=== PATIENT | male | born 1950 | race Caucasian/White ===

== ENCOUNTER 2023-05-10 10:24 | Day surgery (SDC) | payer MEDICARE, BC ==
[2023-05-08 12:53] VITALS: BMI 34.5
[2023-05-10] MEDS: LACTATED RINGERS 1,000 ML IV SCH (10:50)
[2023-05-10 11:02] VITALS: RESP 16; TEMP 97.2
--- NOTE | 2023-05-10 11:45 | P.PCN ---
Date of Procedure: 05/10/23 Procedure(s) Performed: BRIEF HISTORY: Patient is a 73-year-old pleasant white male scheduled for an elective colonoscopy as a part of screening for colon cancer. PROCEDURE PERFORMED: Colonoscopy with snare polypectomy. PREOPERATIVE DIAGNOSIS: Screening for colon cancer. IV sedation per Anesthesia. PROCEDURE: After informed consent was obtained, the patient, was brought into the endoscopy unit. IV sedation was administered by Anesthesia under continuous monitoring. Digital rectal examination was normal. Initially the Olympus CF-160 flexible video colonoscope was then inserted in the rectum, gradually advanced into the cecum without any difficulty. Careful examination was performed as the scope was gradually being withdrawn. Ileocecal valve and the appendiceal orifice were visualized and appeared normal. Prep was excellent. Mucosa of the cecum, appeared normal. There is any colon there was a 3 mm, 8 mm and 1 cm polyp removed by snare polypectomy. Rest of the ascending colon, transverse colon, descending colon, sigmoid colon, and rectum appeared normal. In the distal rectum just proximal to the dentate line there was a 1 cm rectal nodule identified that was removed by snare polypectomy. Moderate sigmoid diverticulosis seen. Retroflexion was performed in the rectum and no lesions were seen. The patient tolerated the procedure well. IMPRESSION: 8 mm, 3 mm and 1 cm ascending colon polyp status post snare polypectomy Scattered sigmoid diverticulosis 1 cm rectal nodule just proximal to the dentate line status post polypectomy RECOMMENDATIONS: Findings of this examination were discussed with the patient as well as his family.. He was advised to follow with the biopsy results. Based on the biopsy results, recommend repeat colonoscopy in 3 years
[2023-05-10 12:14] VITALS: BP 121/67; PULSE 85
== END 2023-05-10 12:36 | disposition home or self-care (01) ==
LOC: ORWHC2ENDO 10:24
PROVIDERS: ATTEND Internal Medicine Gastroenterology
DX: Z12.11 Encounter for screening for malignant neoplasm of colon (principal); D12.2 Benign neoplasm of ascending colon; D17.79 Benign lipomatous neoplasm of other sites; K57.30 Diverticulosis of large intestine without perforation or abscess without bleeding; I10 Essential (primary) hypertension; E78.5 Hyperlipidemia, unspecified; I48.91 Unspecified atrial fibrillation; J44.9 Chronic obstructive pulmonary disease, unspecified; G47.33 Obstructive sleep apnea (adult) (pediatric); M10.9 Gout, unspecified; Z98.890 Other specified postprocedural states; Z79.899 Other long term (current) drug therapy; Z79.01 Long term (current) use of anticoagulants
CPT/HCPCS: 45385; 88305